=== PATIENT | male | born 1965 | race Caucasian/White ===

== ENCOUNTER 2024-08-02 17:40 | Emergency (ER) | payer BC, SELFPAY ==
[2024-08-02 17:53] VITALS: BP 151/105
[2024-08-02 18:24] LABS: % Basophils 0.5 % (0-2); % Eosinophils 4.9 % (0-6); % Immature Granulocytes 0.2 % (0-0.5); % Lymphocytes 29.8 % (20.5-51.1); % Neutrophils 55.6 % (42.2-75.2); Absolute Basophils 0.1 10^3/uL (0-0.2); Absolute Eosinophils 0.6 10^3/uL (0-0.7); Absolute Lymphocytes 3.4 10^3/uL (1.2-3.4); Absolute Neutrophils 6.4 10^3/uL (1.4-6.5); Hematocrit 49.3 % (39.0-52.0); Hemoglobin 17.1 g/dL (13.0-18.0); Mean Corp Hgb Conc. 34.7 g/dL (33.0-37.0); Mean Corpuscular Hgb 31.7 pg (27.0-31.0); Mean Corpuscular Volume 91.5 fL (80.0-94.0); Mean Platelet Volume 11.4 fL (7.4-10.4); Nucleated Red Blood Cells % 0 % (-); Platelet Count 337 10^3/uL (130-400); Red Blood Cell Count 5.39 10^6/uL (4.70-6.10); Red Cell Dist. Width 13.4 % (11.5-14.5); White Blood Cell Count 11.5 10^3/uL (4.8-10.8)
--- NOTE | 2024-08-02 18:24 | ED.GENMED ---
History of Present Illness
General
Chief Complaint: Abnormal Lab Value
Source: patient
Exam Limitations: none
Time Seen by Provider: 08/02/24 18:05
Nursing documentation reviewed up to this point in time: agreed with
History of Present Illness
History of Present Illness:
59 yo male sent here by PCP for reported out pt blood work showing K+ 8.2. Pt is asymptomatic
Pt w h/o HTN, Gaucher disease
Past History
Past History
ED Past Medical History: HTN and Other (gaucher disease)
ED Past Surgical History: Cholecystectomy, Urological (TURP, hernia) and Other (splenectomy)
Social History
Tobacco: Smoker (cigars)
Personal:
Living: with family
Employment: Employed
Review of Systems
Review of Systems
Allergies reviewed?: Yes
All Other Systems: ROS reviewed and negative except as documented in HPI and ROS
Constitutional: Denies fever or fatigue
EENT: Reports no symptoms
Respiratory: Reports no symptoms
Cardiac: Reports no symptoms
ABD/GI: Reports no symptoms
: Reports no symptoms
Musculoskeletal: Reports no symptoms
Skin: Reports no symptoms
Neurological: Reports no symptoms
Phy Exam
Physical Exam
Physical Exam:
GENERAL: No acute distress. A&Ox3.
CONSTITUTIONAL: Afebrile.
EYES: clear, conjunctivae normal
ENMT: moist mucus membranes, Pharynx nl
RESPIRATORY: Regular respirations, nonlabored, lungs clear.
CARDIOVASCULAR: Regular rate and rhythm, no murmurs, no rubs.
GI: Soft, nontender, normal BS
MUSCULOSKELETAL: Moves with ease. Well perfused.
SKIN: Warm, dry, pink
PSYCH: Normal mood and affect. Well kept, interactive and appropriate
NEUROLOGIC: Awake, alert and oriented. No focal neurological deficits
Course
Orders/Labs/Results
Orders:
Orders
08/02/24 17:44
Electrocardiogram (*1) Urgent
Reason for Study: Chest Pain
EKG- Treatment ONCE
08/02/24 18:16
Complete Blood Count/With Diff Urgent
Comprehensive Metabolic Panel Urgent
Abnormal Lab Results
08/02/24
18:16
WBC 11.5 H 10^3/uL
(4.8-10.8)
MCH 31.7 H pg
(27.0-31.0)
MPV 11.4 H fL
(7.4-10.4)
Absolute Monos (auto) 1.0 H 10^3/uL
(0.1-0.6)
BUN 27 H mg/dl
(9-20)
08/02/24 18:16
08/02/24 18:16
Vital Signs
Initial and Last Documented VS:
Initial Vital Signs
Temp Pulse Resp BP Pulse Ox
98.5 F 79 18 151/105 97
08/02/24 17:53 08/02/24 17:53 08/02/24 17:53 08/02/24 17:53 08/02/24 17:53
Last Documented Vital Signs
Temp Pulse Resp BP Pulse Ox
98.5 F 75 18 160/102 93
08/02/24 17:53 08/02/24 19:15 08/02/24 19:15 08/02/24 19:00 08/02/24 19:15
MDM/Problems Addressed
Differential Diagnosis Includes:
Hyperkalemia, lab error
MDM/Problems Addressed:
59 yo male sent here by PCP for reported out pt blood work showing K+ 8.2. Pt is asymptomatic
Pt w h/o HTN, Gaucher disease
Patient remains asymptomatic. His potassium is normal at 3.8
Stable for discharge
*EKG
EKG Intrepretation Date: 08/02/24
Interpretation: normal
Heart Rate: 77
Rate: normal
Rhythm: sinus
[place]: normal axis
QRS Pattern: normal QRS
Ischemia: no ischemia
*Critical Care Note
Total Time (30-74mins, 75-104mins- exclusive of procedures): Not Applicable
ED Attending Note
-
Portions of this chart may have been created with voice recognition software.� Occasional wrong word or��sound alike� substitutions may have occurred due to the inherent limitations of voice recognition software.
Discharge Plan
Departure
Patient Disposition: Home (Routine Discharge)
Date of Disposition: 08/02/24
Time of Disposition: 19:15
Patient with high blood pressure during this ER visit?: No
Condition: Good
Discharge Problem:
Lab value error
Prescriptions:
No Action
imiglucerase [Cerezyme] 400 UNIT recon soln
400 unit IV Q2
Patient Comments:
Pt not sure of dosage
lisinopril 20 MG tablet
40 mg PO DAILY
amlodipine 10 MG tablet
10 mg PO DAILY
hydrocodone-acetaminophen 1 TABLET tablet
1 - 2 tab PO Q4HPRN PRN (Reason: moderate to severe pain) Qty: 10 0RF
Referrals:
Farhat Lambert MD [Family Provider] - As needed
Activity Restrictions/Additional Instructions:
As we discussed, your potassium level is normal, nothing worrisome in your results here tonight.
Interventions
Interventions:
*Risk Screen - Suicide Last Done: 08/02/24 17:53
*General Assessment Last Done: 08/02/24 17:53
*Neglect/Abuse Screening Last Done: 08/02/24 17:53
ED- Fall Risk Assessment Last Done: 08/02/24 18:55
*Nursing Disposition Last Done: 08/02/24 19:32
Discharge Date and Time
Discharge Date/Time: 08/02/24 19:33
Print Language: CITIZEN OF [place]
[2024-08-02 18:38] LABS: ALT (SGPT) 21 U/L (0-50); AST (SGOT) 28 U/L (17-59); Albumin 4.3 g/dl (3.5-5.0); Alkaline Phosphatase 78 U/L (38-126); Blood Urea Nitrogen 27 mg/dl (9-20); Calcium 9.8 mg/dl (8.4-10.2); Carbon Dioxide 23 mmol/L (22-30); Chloride 104 mmol/L (98-107); Glucose 96 mg/dl (70-99); Potassium 3.8 mmol/L (3.5-5.1); Sodium 138 mmol/L (135-145); Total Bilirubin 0.6 mg/dl (0.2-1.3); Total Protein 6.9 g/dl (6.3-8.2); eGFR > 60.00
[2024-08-02 18:55] VITALS: BP 164/110
[2024-08-02 19:00] VITALS: BP 160/102
== END 2024-08-02 19:33 | disposition home or self-care (01) ==
LOC: EMR 17:40
PROVIDERS: Registered Nurse; EMERGENCY PHYSICIAN Emergency Medicine; FAMILY PHYSICIAN Family Medicine
DX: R79.89 Other specified abnormal findings of blood chemistry (principal); I10 Essential (primary) hypertension; F17.290 Nicotine dependence, other tobacco product, uncomplicated; Z90.49 Acquired absence of other specified parts of digestive tract; Z90.79 Acquired absence of other genital organ(s)
CPT/HCPCS: 99283; 80053; 85025; 93005